=== PATIENT | male | born 1970 | race Caucasian/White ===

== ENCOUNTER 2020-04-07 17:19 | Inpatient (IN) | payer OTHER, SELFPAY ==
[2020-04-07 17:21] VITALS: BP 127/72; PULSE 96; RESP 18; TEMP 38.3; O2SAT 97; BMI 24.0
--- NOTE | 2020-04-07 19:28 | ED.VIS.GEN ---
History of Present Illness Chief Complaint: Dental Informant: Patient Narrative: She states that he has been having some decayed teeth particularly on the right side. He states over the weekend it began to swell. He is been unable to eat because it is painful to open his mouth. He went and saw Dr. Sanchez was sent to the emergency department for admission. Past Medical History - Allergies and Home Meds Allergies/Adverse Reactions: Allergies No Known Allergies Allergy (Verified 04/07/20 17:26) Primary Care Physician: Care Physician,No Primary [Primary Care Provider] - Smoking Status: Never smoker Review of Systems General: Reports: Chills, Fever, Malaise, Weight loss. Denies: Sweats Eyes: Denies: Visual changes - bilaterally, Diplopia ENT: Reports: - - See history of present illness. Denies: Rhinorrhea, Sore throat Cardiovascular: Denies: Chest pain, Palpitations Respiratory: Denies: Dyspnea, Cough, Dyspnea on exertion Gastrointestinal: Denies: Abdominal pain, Nausea, Vomiting, Diarrhea, Melena, Hematochezia Genitourinary: Denies: Dysuria, Hematuria, Frequency Musculoskeletal: Denies: Back pain, Extremity Pain Skin: Denies: Rash, Wounds Neurological: Denies: Headache, Weakness, Numbness Physical Exam Vital Signs/Narrative: Vital Signs Temp Pulse Resp BP Pulse Ox 04/07/20 17:21 101.0 F H 96 18 127/72 H 97 Inital Vital Signs reviewed: Yes General: Well nourished, Well developed, No Acute Distress Head: Normocephalic, Atraumatic Eyes: Perrl, EOMI ENT: Moist mucous membranes, No rhinorrhea, - - Patient has trismus. There is obvious right mandibular swelling with some mild erythema. Patient is handling his secretions normally however. Neck: Supple, Nontender Cardiovascular: Regular rate, Regular rhythm, No murmurs, - - Normal capillary refill of the hands Respiratory: No distress, CTA bilaterally, Chest nontender Abdomen: Soft, Nontender, Nondistended, Normal bowel sounds Back: Nontender, Normal Inspection Extremities: Nontender, No edema Skin: Normal color, No rash Neurological: Alert, Oriented x3, Cranial nerves II-XII grossly intact, Normal Strength, Normal Sensation Psychological: Normal affect, Normal Mood Diagnostic/Tx/Re-eval Clinical Impression(s) from Imaging Studies Facial/Sinus 04/07/20 19:41 IMPRESSION: Multiple dental caries complex abscess measuring 5 x 3.4 cm adjacent to a right posterior mandibular dental caries which is noted lateral and medial to the mandible on the right with involvement of the base of the tongue and the floor of mouth. There is compression and narrowing of the oropharynx Cellulitis adjacent to the mandible and right Mildly enlarged right submandibular and pericarotid lymph nodes likely reactive Electronically Signed: Ayo Rosen, at 21:10 EDT Tel , Service support , Laboratory Last Values WBC 13.4 K/mm3 (4.4-11.0) H 04/07/20 19:45 RBC 4.82 M/mm3 (4.6-6.2) 04/07/20 19:45 Hgb 15.2 g/dL (13.0-16.5) 04/07/20 19:45 Hct 43.3 % (40-54) 04/07/20 19:45 MCV 89.8 fL (80-94) 04/07/20 19:45 MCH 31.5 pg (27.0-32.0) 04/07/20 19:45 MCHC 35.1 g/dL (32-36) 04/07/20 19:45 RDW Std Deviation 37.4 fl (35.1-43.9) 04/07/20 19:45 RDW Coeff of Alyce 11.5 % (11.6-14.6) L 04/07/20 19:45 Plt Count 263 K/mm3 (150-450) 04/07/20 19:45 MPV 9.1 fl (6.2-12.0) 04/07/20 19:45 Immature Gran % (Auto) 0.400 % (0.0-0.9) 04/07/20 19:45 Neut % (Auto) 83.0 % (47-70) H 04/07/20 19:45 Lymph % (Auto) 8.1 % (19-41) L 04/07/20 19:45 [place] % (Auto) 8.3 % (0-10) 04/07/20 19:45 Eos % (Auto) 0.0 % (0-5) 04/07/20 19:45 Baso % (Auto) 0.2 % (0-1) 04/07/20 19:45 Absolute Neuts (auto) 11.2 X10^3/uL (2.0-7.7) H 04/07/20 19:45 Absolute Lymphs (auto) 1.09 X10^3/uL (0.83-4.51) 04/07/20 19:45 Nucleated RBC % 0 % (0-5) 04/07/20 19:45 PT 16.1 SECONDS (11.7-14.9) H 04/07/20 19:45 INR 1.3 04/07/20 19:45 APTT 30.3 Seconds (24.1-36.2) 04/07/20 19:45 Sodium 134 mmol/L (136-145) L 04/07/20 19:45 Potassium 3.7 mmol/L (3.5-5.1) 04/07/20 19:45 Chloride 100 mmol/L (98-107) 04/07/20 19:45 Carbon Dioxide 28.0 mmol/L (21.0-32.0) 04/07/20 19:45 Anion Gap 6 (5-15) 04/07/20 19:45 BUN 19 mg/dL (7-18) H 04/07/20 19:45 Creatinine 1.17 mg/dL (0.70-1.30) 04/07/20 19:45 Estim Creat Clear Calc 79.55 ml/min 04/07/20 19:45 Est GFR (MDRD) Af Amer 84 mL/min (>60) 04/07/20 19:45 Est GFR (MDRD) Non-Af 70 mL/min (>60) 04/07/20 19:45 BUN/Creatinine Ratio 16.2 RATIO (10-20) 04/07/20 19:45 Glucose 102 mg/dL (74-106) 04/07/20 19:45 Lactic Acid 1.2 mmol/L (0.4-1.9) 04/07/20 19:45 Calcium 9.4 mg/dL (8.5-10.1) 04/07/20 19:45 Total Bilirubin 0.60 mg/dL (0.20-1.00) 04/07/20 19:45 AST 13 U/L (15-37) L 04/07/20 19:45 ALT 21 U/L (16-61) 04/07/20 19:45 Alkaline Phosphatase 108 U/L (45-117) 04/07/20 19:45 Troponin I < 0.015 ng/mL (<0.045) 04/07/20 19:45 Total Protein 8.8 g/dL (6.4-8.2) H 04/07/20 19:45 Albumin 3.6 g/dL (3.2-5.0) 04/07/20 19:45 Globulin 5.2 g/dL (2.2-4.2) H 04/07/20 19:45 Albumin/Globulin Ratio 0.7 RATIO (0.9-2.4) L 04/07/20 19:45 - Medical Decision Making Patient received morphine Zofran and IV fluids. He received Unasyn after blood cultures were obtained. CT findings were reviewed and discussed with Dr. Sanchez. Plan is admission. Sepsis re-evaluation was performed ED Disposition - Plan for ED Patient: Disposition: Acute Care Hospital [facility] Diagnosis: Dental abscess, Sepsis Referrals: Care Physician,No Primary [Primary Care Provider] -
--- NOTE | 2020-04-07 19:41 | CT_ITS ---
STUDY: CT FACIAL BONES WITH CONTRAST REASON FOR EXAM: Male, 49 years old. INFECTED TOOTH, DENTAL ABSCESS, UNABLE TO SWALLOW RADIATION DOSAGE (If Supplied By Facility): CTDIvol = ( 29.38 ) mGy, DLP = ( 664.99 ) mGycm TECHNIQUE: The patient was scanned in a multi detector CT scanner. Transaxial imaging was performed following the intravenous administration of IV 100mL Isovue-300. Sagittal and coronal images were reconstructed. Individualized dose optimization techniques were used for this CT. COMPARISON: None. FINDINGS: There is soft tissue edema most significant adjacent to the mandible on the right. There are multiple dental caries including a right posterior mandibular molar. Adjacent to this there is a complex abscess measuring 5 x 3.4 cm which is noted lateral and medial to the mandible with involvement of the base of the tongue and floor of the mouth. There is compression and narrowing of the oropharynx. There are Multiple 1.5 cm and smaller right submandibular and cervical lymph nodes. No bony fractures. The sinuses are well aerated. CT/Sinus/Facial Bone WITH Contras IMPRESSION: Multiple dental caries complex abscess measuring 5 x 3.4 cm adjacent to a right posterior mandibular dental caries which is noted lateral and medial to the mandible on the right with involvement of the base of the tongue and the floor of mouth. There is compression and narrowing of the oropharynx Cellulitis adjacent to the mandible and right Mildly enlarged right submandibular and pericarotid lymph nodes likely reactive Electronically Signed: Ayo Rosen, at 21:10 EDT Tel , Service support ,
[2020-04-07] MEDS: 0.9% Normal Saline 1,000 ML 1000 ML IV (19:58)
[2020-04-07] MEDS: Ondansetron 4 MG/2 ML Vial IV (19:59)
[2020-04-07 20:00] VITALS: BP 126/66; PULSE 89; RESP 16; TEMP 37.1; O2SAT 98
[2020-04-07] MEDS: Morphine 4 MG/ML Syringe IV (20:00)
[2020-04-07 20:06] LABS: Absolute Lymphocyte Count 1.09 X10^3/uL (0.83-4.51); Absolute Neutrophil Count 11.2 X10^3/uL (2.0-7.7); Basophil# 0.03 X10^3/uL; Basophil% 0.2 % (0-1); Hematocrit 43.3 % (40-54); Hemoglobin 15.2 g/dL (13.0-16.5); Lymphocyte # 1.09 X10^3/ul (4.0); Lymphocyte % 8.1 % (19-41); Mean Corp Hgb Conc 35.1 g/dL (32-36); Mean Corpuscular Hgb 31.5 pg (27.0-32.0); Mean Corpuscular Volume 89.8 fL (80-94); Mean Platelet Vol. 9.1 fl (6.2-12.0); Monocyte# 1.11 X10^3/uL; Monocyte% 8.3 % (0-10); NRBC Flagged by Analyzer 0 % (0-5); Neutrophil # 11.15 X10^3/uL (2.7-7.7); Platelet Count 263 K/mm3 (150-450); RBC Distribution Width CV 11.5 % (11.6-14.6); RBC Distribution Width SD 37.4 fl (35.1-43.9); Red Blood Count 4.82 M/mm3 (4.6-6.2); White Blood Count 13.4 K/mm3 (4.4-11.0)
[2020-04-07 20:27] LABS: BUN 19 mg/dL (7-18); Glucose 102 mg/dL (74-106)
[2020-04-07 20:28] LABS: ALB/GLOB Ratio 0.7 RATIO (0.9-2.4); AST(SGOT) 13 U/L (15-37); Alanine Aminotransfer ALT/SGPT 21 U/L (16-61); Albumin, Serum 3.6 g/dL (3.2-5.0); Alkaline Phosphatase 108 U/L (45-117); Anion Gap 6 (5-15); BUN/Creat Ratio 16.2 RATIO (10-20); Calcium,Total 9.4 mg/dL (8.5-10.1); Chloride 100 mmol/L (98-107); Creatinine, Serum 1.17 mg/dL (0.70-1.30); EST Glomerular Filtration Rate 70 mL/min (>60); Est Glom Filt Rate - Afr Amer 84 mL/min (>60); Estimated Creatinine Clearance 79.55 ml/min; Globulin 5.2 g/dL (2.2-4.2); Potassium 3.7 mmol/L (3.5-5.1); Protein, Total 8.8 g/dL (6.4-8.2); Sodium Level 134 mmol/L (136-145)
[2020-04-07 20:39] LABS: Lactic Acid 1.2 mmol/L (0.4-1.9)
[2020-04-07] MEDS: 0.9% Normal Saline 1,000 ML 150 ML IV (20:52)
[2020-04-07 21:16] LABS: International Normalized Ratio 1.3; Partial Thromboplast Time 30.3 Seconds (24.1-36.2); Prothrombin Time (Protime)PT. 16.1 SECONDS (11.7-14.9)
--- NOTE | 2020-04-07 21:26 | HP.PCM_ITS ---
History of Present Illness Date of Admission: 04/07/20 Chief Complaint: swollen, painful right jaw The patient is a 49 year old M with no significant past medical history. He was admitted through the ED on 04/07/2020 after being sent to the ED from his dentist office. Patient will see his dentist because he had noticed that his right jaw had become swollen over the weekend. Patient states he has been dealing with a tooth ache for the past several months and today has gradually gotten worse. The affected tooth is in the back of his right jaw. He noticed that over the weekend, his jaw became swollen and red as well as very painful. Was unable to swallow due to pain and unable to open his mouth fully. He had associated fever and chills but denied any nausea, vomiting or diarrhea. Review of symptoms otherwise negative. He has never had such symptoms before. At time of review in the ED, temperature was 98.7 Fahrenheit with blood pressure of 126/66, pulse rate of 89 and respiratory of 16. He was saturating 98% on room air. Chemistry showed sodium of 134 with creatinine of 1.17. CBC showed WBC of 13.4 and hemoglobin of 15.2. Imaging done of the sinuses showed multiple dental caries with complex abscess measuring 5 x 3.4 cm adjacent to the right posterior mandibular dental caries which is noted lateral and medial to the mandible on the right with involvement of the base of the tongue and the floor of the mouth with compression and narrowing of the oropharynx and cellulitis adjacent to the mandible and right mildly enlarged submandibular and periparotid lymph nodes likely reactive. He has been admitted to be managed for cellulitis with abscess of the right mandible due to dental caries. He was given IV Unasyn in the ED. [] Past Medical History Allergies No Known Allergies Allergy (Verified 04/07/20 17:26) Home Medications: Ambulatory Orders Medication Instructions Recorded NK 04/07/20 Surgical History: no surgical history Psychiatric History: No pertinent psych hx Lives: Spouse/ Significant Other Smoking Status: Never smoker Alcohol: None Drugs: None - *Family History Maternal History Items: No pertinent history Paternal History Items: No pertinent history Review of Systems Constitutional: Reports: Anorexia, Chills, Fever, Malaise. Denies: Weakness, Fatigue Eyes: Denies: Blurred vision HEENT: Reports: Difficulty Swallowing, Sore Throat, - - jaw swelling, jaw pain. Denies: Head Aches, Sinus Congestion, Sinus Drainage Cardiovascular: Denies: Chest Pain, Palpitations Respiratory: Denies: Cough, Shortness of Breath, Shortness of breath at rest, Sputum production Gastrointestinal: Denies: Abdominal Pain, Nausea, Vomiting Genitourinary: Denies: Dysuria Musculoskeletal: Denies: Joint Pain, Joint Tenderness Skin: Denies: Rash, Wounds Neurological: Denies: Numbness, Tingling, Focal weakness Psychiatric: Denies: Anxiety, Depression, Homicidal Ideations, Suicidal Ideations Hematologic/ Lymphatic: Denies: Easy Bruising, Easy Bleeding VTE Information - Inpt Only VTE Present on Admission: No VTE Pharm Prophylaxis ordered?: Yes Patient Problems: Active and Suspected Problems Dental abscess (Acute) Sepsis (Acute) - Physical Exam Vitals/I&O's: Vital Signs Temp Pulse Resp BP Pulse Ox 98.7 F 89 16 126/66 H 98 04/07/20 20:00 04/07/20 20:00 04/07/20 20:00 04/07/20 20:00 04/07/20 20:00 Oxygen Delivery Method Room Air Weight: 171 lb 15.369 oz Body Mass Index (BMI) 24.0 Intake and Output for Last 24 Hours 04/05/20 04/06/20 04/07/20 23:59 23:59 23:59 Intake Total 1000 / 1000 Balance 1000 / 1000 General: Alert, Oriented x3, Cooperative, No apparent distress HEENT: Atraumatic, PERRLA, EOMI, Normocephalic Oral: Dry Mucosa, - - right jaw swollen, erhtyematous, tender and fluctuant. Unable to open mouth fully,has trismus and torticollis to the right. Neck: Supple, No JVD, Negative Carotid Bruits Lungs: Clear to auscultation, Normal air movement, No rhonchi, No wheeze, No rales Cardiovascular: Regular rate, Regular Rhythm, Normal S1, Normal S2, No murmurs Abdomen: Bowel Sounds Present, Soft, Non Tender, Non-Distended, No Hepato- splenomegaly Extremities: No clubbing, No cyanosis, No edema, Capillary Refill Less than 3 Seconds Skin: No rashes, No breakdown Musculoskeletal: No Tenderness to Palpation of Joints or Extremities Lymphatic: No Cervical, Supraclavicular, or Inguinal Adenopathy Neurological: Cranial nerves II-XII grossly intact, Neuro grossly intact, Motor Exam 5/5 strength throughout Psych/Mental Status: Normal Affect, Appropriate, Alert and oriented to time, place, person, mood and affect Laboratory Results 04/07/20 19:45: WBC 13.4 H, RBC 4.82, Hgb 15.2, Hct 43.3, MCV 89.8, MCH 31.5, MCHC 35.1, RDW Std Deviation 37.4, RDW Coeff of Alyce 11.5 L, Plt Count 263, MPV 9.1, Immature Gran % (Auto) 0.400, Neut % (Auto) 83.0 H, Lymph % (Auto) 8.1 L, [place] % (Auto) 8.3, Eos % (Auto) 0.0, Baso % (Auto) 0.2, Absolute Neuts (auto) 11.2 H, Absolute Lymphs (auto) 1.09, Nucleated RBC % 0 04/07/20 19:45: PT 16.1 H, INR 1.3, APTT 30.3 04/07/20 19:45: Sodium 134 L, Potassium 3.7, Chloride 100, Carbon Dioxide 28.0, Anion Gap 6, BUN 19 H, Creatinine 1.17, Estim Creat Clear Calc 79.55, Est GFR (MDRD) Af Amer 84, Est GFR (MDRD) Non-Af 70, BUN/Creatinine Ratio 16.2, Glucose 102, Calcium 9.4, Total Bilirubin 0.60, AST 13 L, ALT 21, Alkaline Phosphatase 108, Troponin I < 0.015, Total Protein 8.8 H, Albumin 3.6, Globulin 5.2 H, Albumin/Globulin Ratio 0.7 L 04/07/20 19:45: Lactic Acid 1.2 Diagnostic Data Facial/Sinus 04/07/20 19:41 IMPRESSION: Multiple dental caries complex abscess measuring 5 x 3.4 cm adjacent to a right posterior mandibular dental caries which is noted lateral and medial to the mandible on the right with involvement of the base of the tongue and the floor of mouth. There is compression and narrowing of the oropharynx Cellulitis adjacent to the mandible and right Mildly enlarged right submandibular and pericarotid lymph nodes likely reactive Electronically Signed: Ayo Rosen, at 21:10 EDT Tel , Service support , Current Medications Sodium Chloride () 1,000 mls @ 150 mls/hr IV .[id number] [facility] Last Admin: 04/07/20 20:52 Dose: 150 mls/hr Documented by: Iopamidol (Contrast Allergy Check) 0 ml IV X1 [facility] Assessment/Plan All Active Problems Dental abscess (Acute) Sepsis (Acute) 49-year-old male admitted with a complaint of jaw pain and swelling. 1. Right mandiubular abscess and cellulitis * admit to med surg * wbc is 13.4 * CT of the face and sinuses: Multiple dental abscesses and complex abscess measuring 5 cm x 3.4 cm adjacent to posterior mandibular dental caries with involvement of the base of the tongue and floor of the mouth with compression and narrowing of the oropharynx as well as cellulitis and enlarged lymph nodes. * Keep n.p.o. Hydrate with IV fluids. IV morphine as needed for pain * Continue with IV Unasyn * Consult maxillofacial surgeon-Dr. Sanchez discussed case with the ED and he plans to take patient for surgery tomorrow morning * DVT prophylaxis: Lovenox CODE STATUS: Full code * Patient counseled extensively about different types of CODE STATUS including full code, DNR CCA and DNR CCA. Patient elects to be full code. Total [id number] time 16 minutes. * Inpatient E&M: 12689 Init Hosp L3 Procedures: 67248 Advncd Care Plan 30 Min
[2020-04-07 21:49] VITALS: BP 127/74; PULSE 86; RESP 16; TEMP 37.1; O2SAT 96
[2020-04-07 22:41] VITALS: BMI 27.3
[2020-04-07 22:47] VITALS: BMI 27.3
[2020-04-07 22:57] VITALS: BP 139/70; PULSE 76; RESP 16; TEMP 37.9; O2SAT 100
[2020-04-08] VITALS (13 sets, daily range): BP systolic 95–121; BP diastolic 49–68; PULSE 71–93; RESP 16–18; TEMP 36.7–37.9; O2SAT 93–100; BMI 27.3
[2020-04-08 01:59] LABS: Probe Check PASS; Specimen Processing Control PASS
[2020-04-08] MEDS: Morphine 4 MG/ML Syringe IV (02:43)
[2020-04-08] MEDS: 0.9% Normal Saline 1,000 ML 125 ML IV ×3 (05:50→16:49)
[2020-04-08 06:22] LABS: Absolute Lymphocyte Count 1.03 X10^3/uL (0.83-4.51); Absolute Neutrophil Count 10.5 X10^3/uL (2.0-7.7); Basophil# 0.02 X10^3/uL; Basophil% 0.2 % (0-1); Eosinophil# 0.04 X10^3/uL; Eosinophils% 0.3 % (0-5); Hematocrit 36.2 % (40-54); Hemoglobin 12.1 g/dL (13.0-16.5); Lymphocyte # 1.03 X10^3/ul (4.0); Mean Corp Hgb Conc 33.4 g/dL (32-36); Mean Corpuscular Hgb 30.4 pg (27.0-32.0); Mean Platelet Vol. 8.9 fl (6.2-12.0); Monocyte# 1.28 X10^3/uL; Monocyte% 9.9 % (0-10); NRBC Flagged by Analyzer 0 % (0-5); Neutrophil # 10.48 X10^3/uL (2.7-7.7); Neutrophil % 81.1 % (47-70); Platelet Count 207 K/mm3 (150-450); RBC Distribution Width CV 11.8 % (11.6-14.6); RBC Distribution Width SD 38.5 fl (35.1-43.9); Red Blood Count 3.98 M/mm3 (4.6-6.2); White Blood Count 12.9 K/mm3 (4.4-11.0)
[2020-04-08 06:44] LABS: Anion Gap 4 (5-15); BUN 16 mg/dL (7-18); BUN/Creat Ratio 17.3 RATIO (10-20); Calcium,Total 8.3 mg/dL (8.5-10.1); Chloride 104 mmol/L (98-107); Creatinine, Serum 0.93 mg/dL (0.70-1.30); EST Glomerular Filtration Rate 91 mL/min (>60); Est Glom Filt Rate - Afr Amer 110 mL/min (>60); Estimated Creatinine Clearance 90.91 ml/min; Glucose 101 mg/dL (74-106); Potassium 3.6 mmol/L (3.5-5.1); Sodium Level 133 mmol/L (136-145)
--- NOTE | 2020-04-08 07:41 | CON.PCM_ITS ---
Reason for Consult Date of Consultation: 04/08/20 Reason for Consultation: Facial and neck abscess History of Present Illness: The patient is a 49 year old Male admitted for severe facial abscess from odontogenic sources Past Medical History Allergies No Known Allergies Allergy (Verified 04/07/20 17:26) Home Medications: Ambulatory Orders Medication Instructions Recorded NK 04/07/20 Surgical History: no surgical history Psychiatric History: No pertinent psych hx Lives: Spouse/ Significant Other Smoking Status: Never smoker Alcohol: None Drugs: None - *Family History Maternal History Items: No pertinent history Paternal History Items: No pertinent history Patient Problems: Active and Suspected Problems Dental abscess (Acute) Sepsis (Acute) - Physical Exam Vitals/I&O's: Vital Signs Temp Pulse Resp BP Pulse Ox 98.3 F 76 16 112/64 97 04/08/20 02:40 04/08/20 02:40 04/08/20 02:40 04/08/20 02:40 04/08/20 02:40 Oxygen Delivery Method Room Air Weight: 81.5 kg Body Mass Index (BMI) 27.3 Intake and Output for Last 24 Hours 04/06/20 04/07/20 04/08/20 23:59 23:59 23:59 Intake Total 1542 / 1542 727.83 / 727.83 Output Total 350 / 350 Balance 1542 / 1192 377.83 / 377.83 General: Alert, Oriented x3, Cooperative HEENT: Atraumatic, PERRLA, EOMI, Normocephalic Oral: Moist Mucosa Neck: Supple - More soft tissue swelling right submandibular region, No JVD Laboratory Results 04/07/20 19:45: WBC 13.4 H, RBC 4.82, Hgb 15.2, Hct 43.3, MCV 89.8, MCH 31.5, MCHC 35.1, RDW Std Deviation 37.4, RDW Coeff of Alyce 11.5 L, Plt Count 263, MPV 9.1, Immature Gran % (Auto) 0.400, Neut % (Auto) 83.0 H, Lymph % (Auto) 8.1 L, [place] % (Auto) 8.3, Eos % (Auto) 0.0, Baso % (Auto) 0.2, Absolute Neuts (auto) 11.2 H, Absolute Lymphs (auto) 1.09, Nucleated RBC % 0 04/07/20 19:45: PT 16.1 H, INR 1.3, APTT 30.3 04/07/20 19:45: Sodium 134 L, Potassium 3.7, Chloride 100, Carbon Dioxide 28.0, Anion Gap 6, BUN 19 H, Creatinine 1.17, Estim Creat Clear Calc 79.55, Est GFR (MDRD) Af Amer 84, Est GFR (MDRD) Non-Af 70, BUN/Creatinine Ratio 16.2, Glucose 102, Calcium 9.4, Total Bilirubin 0.60, AST 13 L, ALT 21, Alkaline Phosphatase 108, Troponin I < 0.015, Total Protein 8.8 H, Albumin 3.6, Globulin 5.2 H, Albumin/Globulin Ratio 0.7 L 04/07/20 19:45: Lactic Acid 1.2 04/08/20 01:00: COVID-19 ([facility]) Negative 04/08/20 06:05: WBC 12.9 H, RBC 3.98 L, Hgb 12.1 L, Hct 36.2 L, MCV 91.0, MCH 30.4, MCHC 33.4, RDW Std Deviation 38.5, RDW Coeff of Alyce 11.8, Plt Count 207, MPV 8.9, Immature Gran % (Auto) 0.500, Neut % (Auto) 81.1 H, Lymph % (Auto) 8.0 L, [place] % (Auto) 9.9, Eos % (Auto) 0.3, Baso % (Auto) 0.2, Absolute Neuts (auto) 10.5 H, Absolute Lymphs (auto) 1.03, Nucleated RBC % 0 04/08/20 06:05: Sodium 133 L, Potassium 3.6, Chloride 104, Carbon Dioxide 25.0, Anion Gap 4 L, BUN 16, Creatinine 0.93, Estim Creat Clear Calc 90.91, Est GFR (MDRD) Af Amer 110, Est GFR (MDRD) Non-Af 91, BUN/Creatinine Ratio 17.3, Glucose 101, Calcium 8.3 L Current Medications Dextrose (D50w Syringe) 0 gm IV X1 PRN; Protocol PRN Reason: Hypoglycemia Glucagon () 1 mg IM .X1 PRN PRN Reason: Hypoglycemia Sodium Chloride () 1,000 mls @ 125 mls/hr IV .Q8H [facility] Stop: 07/28/20 22:55 Last Infusion: 04/08/20 06:12 Dose: 0 mls/hr Documented by: Ampicillin Sodium/Sulbactam (Sodium 3 gm/ Sodium Chloride) 112 mls @ 150 mls/hr IV Q6 [facility] Last Admin: 04/08/20 06:09 Dose: 150 mls/hr Documented by: Sodium Chloride () 250 mls @ 15 mls/hr IV .[id number] PRN PRN Reason: Saline Flush Morphine Sulfate () 4 mg IV Q3H PRN PRN PRN Reason: Pain Score 6-10/10 Last Admin: 04/08/20 02:43 Dose: 4 mg Documented by: Ondansetron HCl (Zofran) 4 mg IV Q8H PRN PRN PRN Reason: NAUSEA/VOMITING Sodium Chloride () 10 - 40 ml IV UD PRN PRN Reason: SALINE FLUSH Assessment/Plan All Active Problems Dental abscess (Acute) Sepsis (Acute) Right submandibular space, right sublingual, inside sales recruiter space involvement. Plan on continued NPO today and later today OR for I and D of Involved spaces.
--- NOTE | 2020-04-08 07:52 | NURSING ---
SPOKE WITH DR RODRIGUEZ ON TELEPHONE. PT REQUESTING SOME CLEARS LIQUIDS. SAYS NOT @ THIS TIME BECAUSE WE ARE UNSURE OF SURGERY TIME TODAY. DID, HOWEVER, ORDER COVID TEST.
--- NOTE | 2020-04-08 10:15 | CASEMGMT ---
RN MAT Face to Face with patient for initial transition planning/care coordination assessment. RN CM introduced self and role at [facility]. Patient lying in bed, alert and oriented. Patient willing to participate in assessment and is able to answer all questions appropriately. Care providers, pharmacy, and demographics verified. Patient wishes to discharge home, denies need for home health at this time. Patient states he has no further needs or concerns at this time. CM to follow for discharge planning needs that may arise. PCP: [facility] Specialists: none Preferred Pharmacy: [facility] Insurance: [employer] Prescription Benefit: none Living Will/HPOA: none LNOK: Living Arrangements: Patient lives with in 2 story home. Patient is independent and able to ambulate stairs. Transportation: self/driving service DME/HHC: Patient denies DME or HHC. Disposition Plan: Patient to discharge home with family support and follow-up plans in place. Светлана SANCHEZ, RN, CM
--- NOTE | 2020-04-08 13:05 | PN_ITS ---
Patient Problems: Active and Suspected Problems Dental abscess (Acute) Sepsis (Acute) Reason for Visit: Follow-up for right-sided deep cervical fascia fascial abscess in multiple planes Objective: Patient admitted with right-sided facial swelling, trismus, dysphagia since Tuesday. Gradually increasing. Patient also has fever, T-max 101 Fahrenheit on admission Blood pressure 112/60 4 in the morning. No hypoxia or tachypnea Patient has history of dental caries Physical exam General: Alert, Oriented x3, Cooperative HEENT: Atraumatic, PERRLA, EOMI, Normocephalic Oral: Trismus present. On limited oral exam, dental caries of premolar and molar with purulent material seen in the molar area. Tenderness present on buccal area. Diffuse swelling, erythema and tenderness of right side of face from temporal region to upper half of neck vertically and horizontally from mastoid process to mid-face. Due to pain and tenderness and swelling, patient did not allow for cervical lymph node exam Neck: Supple, No JVD, Negative Carotid Bruits Lungs: Air entry diminished in bilateral lung bases. No crepitation/rhonchi Cardiovascular: Regular rate, Regular Rhythm, Normal S1, Normal S2, No murmurs Abdomen: Bowel Sounds Present, Soft, Non Tender, Non-Distended : No renal angle tenderness. No suprapubic tenderness. Extremities: No edema, Capillary Refill Less than 3 Seconds Skin: No rashes, No breakdown Musculoskeletal: No Tenderness to Palpation of Joints or Extremities Neurological: Cranial nerves II-XII grossly intact, Deep Tendon Reflexes 2+/4 and Symmetrical, Neuro grossly intact Psych/Mental Status: Normal Affect, Appropriate. Vitals/I&O's: Vital Signs Temp Pulse Resp BP Pulse Ox 98.6 F 83 18 95/54 L 98 04/08/20 11:43 04/08/20 11:43 04/08/20 11:43 04/08/20 11:43 04/08/20 11:43 Oxygen Delivery Method Room Air Weight: 179 lb 10.828 oz Body Mass Index (BMI) 27.3 Intake and Output for Last 24 Hours 04/06/20 04/07/20 04/08/20 23:59 23:59 23:59 Intake Total 1542 / 1542 1551.83 / 1551.83 Output Total 350 / 350 Balance 1542 / 1192 1201.83 / 1201.83 Laboratory Results 04/07/20 19:45: WBC 13.4 H, RBC 4.82, Hgb 15.2, Hct 43.3, MCV 89.8, MCH 31.5, MCHC 35.1, RDW Std Deviation 37.4, RDW Coeff of Alyce 11.5 L, Plt Count 263, MPV 9.1, Immature Gran % (Auto) 0.400, Neut % (Auto) 83.0 H, Lymph % (Auto) 8.1 L, Irion % (Auto) 8.3, Eos % (Auto) 0.0, Baso % (Auto) 0.2, Absolute Neuts (auto) 11.2 H, Absolute Lymphs (auto) 1.09, Nucleated RBC % 0 04/07/20 19:45: PT 16.1 H, INR 1.3, APTT 30.3 04/07/20 19:45: Sodium 134 L, Potassium 3.7, Chloride 100, Carbon Dioxide 28.0, Anion Gap 6, BUN 19 H, Creatinine 1.17, Estim Creat Clear Calc 79.55, Est GFR (MDRD) Af Amer 84, Est GFR (MDRD) Non-Af 70, BUN/Creatinine Ratio 16.2, Glucose 102, Calcium 9.4, Total Bilirubin 0.60, AST 13 L, ALT 21, Alkaline Phosphatase 108, Troponin I < 0.015, Total Protein 8.8 H, Albumin 3.6, Globulin 5.2 H, Albumin/Globulin Ratio 0.7 L 04/07/20 19:45: Lactic Acid 1.2 04/08/20 01:00: COVID-19 ([facility]) Negative 04/08/20 06:05: WBC 12.9 H, RBC 3.98 L, Hgb 12.1 L, Hct 36.2 L, MCV 91.0, MCH 30.4, MCHC 33.4, RDW Std Deviation 38.5, RDW Coeff of Alyce 11.8, Plt Count 207, MPV 8.9, Immature Gran % (Auto) 0.500, Neut % (Auto) 81.1 H, Lymph % (Auto) 8.0 L, Irion % (Auto) 9.9, Eos % (Auto) 0.3, Baso % (Auto) 0.2, Absolute Neuts (auto) 10.5 H, Absolute Lymphs (auto) 1.03, Nucleated RBC % 0 04/08/20 06:05: Sodium 133 L, Potassium 3.6, Chloride 104, Carbon Dioxide 25.0, Anion Gap 4 L, BUN 16, Creatinine 0.93, Estim Creat Clear Calc 90.91, Est GFR (MDRD) Af Amer 110, Est GFR (MDRD) Non-Af 91, BUN/Creatinine Ratio 17.3, Glucose 101, Calcium 8.3 L Current Medications Dextrose (D50w Syringe) 0 gm IV X1 PRN; Protocol PRN Reason: Hypoglycemia Glucagon () 1 mg IM .X1 PRN PRN Reason: Hypoglycemia Sodium Chloride () 1,000 mls @ 125 mls/hr IV .Q8H CECILE Stop: 04/08/20 22:55 Last Infusion: 04/08/20 12:20 Dose: 125 mls/hr Documented by: Ampicillin Sodium/Sulbactam (Sodium 3 gm/ Sodium Chloride) 112 mls @ 150 mls/hr IV Q6 CECILE Last Infusion: 04/08/20 12:20 Dose: Infused Documented by: Sodium Chloride () 250 mls @ 15 mls/hr IV .[id number] PRN PRN Reason: Saline Flush Morphine Sulfate () 4 mg IV Q3H PRN PRN PRN Reason: Pain Score 6-10/10 Last Admin: 04/08/20 02:43 Dose: 4 mg Documented by: Ondansetron HCl (Zofran) 4 mg IV Q8H PRN PRN PRN Reason: NAUSEA/VOMITING Sodium Chloride () 10 - 40 ml IV UD PRN PRN Reason: SALINE FLUSH STROKE Vital Signs/Narrative: Vital Signs Temp Pulse Resp BP Pulse Ox 04/08/20 11:43 98.6 F 83 18 95/54 L 98 04/08/20 11:37 98.6 F 83 18 95/54 L 98 Medical Necessity - Tobacco Use Smoking Status: Never smoker Assessment/Plan All Active Problems Dental abscess (Acute) Sepsis (Acute) This is a 49-year-old male admitted with a complaint of right-sided face swelling, pain and tenderness started with submandibular region and CT finding suggestive of abscess. 1. Right facial cellulitis with deep, complex abscesses in multiple fascial planes in the right submandibular space, right sublingual space and right display screen fabricator space, odontogenic origin: Patient is admitted on [facility]. Leukocytosis with left shift. Patient has fever. CT shows complex abscess measuring 5 x 3.4 cm, adjacent to right posterior mandible dental caries with involvement of the base of the tongue, floor of the mouth with compression and narrowing on the oropharynx. There is cellulitis noted to the mandible. Mildly enlarged right submandibular and pericardial lymph nodes Patient is going for surgery today. IV fluid and pain control. On IV Unasyn. Oral maxillofacial surgeon Dr. Sanchez's saw the patient and consult reviewed. 2. Dental caries of premolar and molar: Patient denies history of smoking cigarettes, chewing tobacco. Occasionally mild lingering cough. DVT prophylaxis: Lovenox CODE STATUS: Full code Clinical Impression(s) from Imaging Studies Facial/Sinus 04/07/20 19:41 IMPRESSION: Multiple dental caries complex abscess measuring 5 x 3.4 cm adjacent to a right posterior mandibular dental caries which is noted lateral and medial to the mandible on the right with involvement of the base of the tongue and the floor of mouth. There is compression and narrowing of the oropharynx Cellulitis adjacent to the mandible and right Mildly enlarged right submandibular and pericarotid lymph nodes likely reactive Inpatient E&M: 61622 Subs Hosp L2
--- NOTE | 2020-04-08 14:41 | NURSING ---
PT TO OR VIA BED
--- NOTE | 2020-04-08 16:47 | OP.PCM_ITS ---
Report of Operation Date of Procedure: 04/08/20 Pre-Operative Diagnosis: Right Submandibular, sublingual,bin tripper operator and lateral pharyngeal space abcess Post-Operative Diagnosis: Same. Odontogenic cause is infected tooth 32 Surgery/Procedure Performed:: I and D of Submandibular, sublingual , masticato, lateral pharyngeal spaces and extraction tooth 32 Type of Anesthesia:: General/Regional Special Medications: none Specimen's removed: tooth removed not submitted Drains: yes 2 located on medial and lateral aspect of posterior mandible Estimated Blood Loss (mL): minimal Description of Procedure: Patient placed on OR table supine position with anesthesia monitors placed. IV GA administered and patient orally intubated with aid of glidescope.. After sterile draping local anesthesia administered by right inferior alveolar nerve block. Full thickness flap elevated and tooth 32 was extracted. Buccal and lingual incisions made and dissection inferiorly both medially and laterally instantly returned purulent exudate which was submitted for laboratory analysis. At this time we went to the right submandibular region where an incision was made and dissection superiorly up to the medial and lateral aspects of the mandible was completed. Then we went posteriorly into the right bin tripper operator spaces. Nina drains were placed and sutured to the skin. The oral cavity was suctioned free of debri and the incision sites were irrigated. The patient was awakened and extubated after breathing around the tube was verified. He was taken to post anesthesia recovery in stable condition. All sponge and needle counts were correct. - Complications No complications noted.
[2020-04-09] VITALS (7 sets, daily range): BP systolic 100–114; BP diastolic 51–70; PULSE 53–68; RESP 16–18; TEMP 36.2–36.7; O2SAT 97–100
--- NOTE | 2020-04-09 15:01 | PCM.PN.HOSP ---
Patient Problems: Active and Suspected Problems Dental abscess (Acute) Sepsis (Acute) Reason for Visit: Right-sided facial and deep tissue cervical fascia infection oral and deep tissue spaces Objective: Seen and examined. Right-sided facial swelling is much better. There is decreased erythema and tenderness of left-sided facial swelling. Patient is able to open mouth more Physical exam General: Alert, Oriented x3, Cooperative HEENT: Atraumatic, PERRLA, EOMI, Normocephalic Oral: Trismus is decreased. on peroral exam, dental caries of premolar and molar. Proctor drain left. Mild tenderness present. Swelling, erythema and tenderness of right side of face has decreased. 8 is more restricted to masseter area, left submandibular region. Left sided cervical and submandibular lymph node not enlarged. Neck: Supple, No JVD, Negative Carotid Bruits Lungs: Air entry diminished in bilateral lung bases. No crepitation/rhonchi Cardiovascular: Regular rate, Regular Rhythm, Normal S1, Normal S2, No murmurs Abdomen: Bowel Sounds Present, Soft, Non Tender, Non-Distended : No renal angle tenderness. No suprapubic tenderness. Extremities: No edema, Capillary Refill Less than 3 Seconds Skin: No rashes, No breakdown Musculoskeletal: No Tenderness to Palpation of Joints or Extremities Neurological: Cranial nerves II-XII grossly intact, Deep Tendon Reflexes 2+/4 and Symmetrical, Neuro grossly intact Psych/Mental Status: Normal Affect, Appropriate. Vitals/I&O's: Vital Signs Temp Pulse Resp BP Pulse Ox 98.1 F 60 16 101/63 99 04/09/20 13:47 04/09/20 13:47 04/09/20 13:47 04/09/20 13:47 04/09/20 13:47 Oxygen Delivery Method Room Air Weight: 179 lb 10.828 oz Body Mass Index (BMI) 27.3 Intake and Output for Last 24 Hours 04/07/20 04/08/20 04/09/20 23:59 23:59 23:59 Intake Total 1542 / 1542 3943.83 / 3943.83 1437.50 / 1437.50 Output Total 350 / 350 1750 / 1750 Balance 1542 / 1192 3593.83 / 3593.83 -312.50 / -312.50 Microbiology Past 72 Hours 04/08/20 16:21 Other - Mouth Gram Stain - Final 04/08/20 16:21 Other - Mouth Wound Culture - Preliminary Alpha hemolytic organism Current Medications Dextrose (D50w Syringe) 0 gm IV X1 PRN; Protocol PRN Reason: Hypoglycemia Glucagon () 1 mg IM .X1 PRN PRN Reason: Hypoglycemia Ampicillin Sodium/Sulbactam (Sodium 3 gm/ Sodium Chloride) 112 mls @ 150 mls/hr IV Q6 CECILE Last Infusion: 04/09/20 12:03 Dose: Infused Documented by: Sodium Chloride () 250 mls @ 15 mls/hr IV .[id number] PRN PRN Reason: Saline Flush Last Infusion: 04/09/20 12:03 Dose: 15 mls/hr Documented by: Morphine Sulfate () 4 mg IV Q3H PRN PRN PRN Reason: Pain Score 6-10/10 Last Admin: 04/08/20 02:43 Dose: 4 mg Documented by: Ondansetron HCl (Zofran) 4 mg IV Q8H PRN PRN PRN Reason: NAUSEA/VOMITING Sodium Chloride () 10 - 40 ml IV UD PRN PRN Reason: SALINE FLUSH STROKE Vital Signs/Narrative: Vital Signs Temp Pulse Resp BP Pulse Ox 04/09/20 13:47 98.1 F 60 16 101/63 99 Medical Necessity - Tobacco Use Smoking Status: Never smoker Assessment/Plan All Active Problems Dental abscess (Acute) Sepsis (Acute) This is a 49-year-old male admitted with a complaint of right-sided face swelling, pain and tenderness started with submandibular region and CT finding suggestive of abscess. 1. Right facial cellulitis with deep, complex abscesses in multiple fascial planes in the right submandibular space, right sublingual space and right audiovisual equipment operator space, odontogenic origin: Patient is admitted on [facility] floor. Leukocytosis with left shift. Patient has fever. CT shows complex abscess measuring 5 x 3.4 cm, adjacent to right posterior mandible dental caries with involvement of the base of the tongue, floor of the mouth with compression and narrowing on the oropharynx. There is cellulitis noted to the mandible. Mildly enlarged right submandibular and pericardial lymph nodes 04/09: The patient had incision and drainage of submandibular, sublingual, audiovisual equipment operator and retropharyngeal space abscesses. Tooth 32 was also extracted. Left facial swelling has much improved about 75% along with decreased tenderness. There is Proctor drain left in the pharyngeal region. Wound culture is growing alphahemolytic organism. Clinically patient got much better with IV Unasyn and will continue it. On clear liquid diet. IV fluid and pain control. 2. Dental caries of premolar and molar: Patient denies history of smoking cigarettes, chewing tobacco. Occasionally mild lingering cough. DVT prophylaxis: Lovenox CODE STATUS: Full code Clinical Impression(s) from Imaging Studies Facial/Sinus 04/07/20 19:41 IMPRESSION: Multiple dental caries complex abscess measuring 5 x 3.4 cm adjacent to a right posterior mandibular dental caries which is noted lateral and medial to the mandible on the right with involvement of the base of the tongue and the floor of mouth. There is compression and narrowing of the oropharynx Cellulitis adjacent to the mandible and right Mildly enlarged right submandibular and pericarotid lymph nodes likely reactive
--- NOTE | 2020-04-09 15:20 | NURSING ---
Dr. Sanchez called in- states that he will be in shortly
[2020-04-09] MEDS: 0.9% Saline Lock 10 ML Syringe IV (15:27)
[2020-04-09] MEDS: Morphine 4 MG/ML Syringe IV (15:27)
--- NOTE | 2020-04-09 16:25 | PCM.PROGNOTE ---
Patient Problems: Active and Suspected Problems Dental abscess (Acute) Sepsis (Acute) - Physical Exam Vitals/I&O's: Vital Signs Temp Pulse Resp BP Pulse Ox 98.1 F 60 16 101/63 99 04/09/20 13:47 04/09/20 13:47 04/09/20 13:47 04/09/20 13:47 04/09/20 13:47 Oxygen Delivery Method Room Air Weight: 81.5 kg Body Mass Index (BMI) 27.3 Intake and Output for Last 24 Hours 04/07/20 04/08/20 04/09/20 23:59 23:59 23:59 Intake Total 1542 / 1542 3943.83 / 3943.83 1437.50 / 1437.50 Output Total 350 / 350 1750 / 1750 Balance 1542 / 1192 3593.83 / 3593.83 -312.50 / -312.50 Microbiology Past 72 Hours 04/08/20 16:21 Other - Mouth Gram Stain - Final 04/08/20 16:21 Other - Mouth Wound Culture - Preliminary Alpha hemolytic organism Current Medications Dextrose (D50w Syringe) 0 gm IV X1 PRN; Protocol PRN Reason: Hypoglycemia Glucagon () 1 mg IM .X1 PRN PRN Reason: Hypoglycemia Ampicillin Sodium/Sulbactam (Sodium 3 gm/ Sodium Chloride) 112 mls @ 150 mls/hr IV Q6 CECILE Last Infusion: 04/09/20 12:03 Dose: Infused Documented by: Sodium Chloride () 250 mls @ 15 mls/hr IV .[id number] PRN PRN Reason: Saline Flush Last Infusion: 04/09/20 12:03 Dose: 15 mls/hr Documented by: Potassium Chloride () 10 meq in 100 mls @ 100 mls/hr IV BOLUS Q1H CECILE Stop: 04/09/20 17:59 Morphine Sulfate () 4 mg IV Q3H PRN PRN PRN Reason: Pain Score 6-10/10 Last Admin: 04/09/20 15:27 Dose: 4 mg Documented by: Ondansetron HCl (Zofran) 4 mg IV Q8H PRN PRN PRN Reason: NAUSEA/VOMITING Sodium Chloride () 10 - 40 ml IV UD PRN PRN Reason: SALINE FLUSH Last Admin: 04/09/20 15:27 Dose: 10 ml Documented by: Medical Necessity - Tobacco Use Smoking Status: Never smoker Assessment/Plan All Active Problems Dental abscess (Acute) Sepsis (Acute) Patient reports feeling better. Trismus is lessened and he states he is swallowing well. The kishore drains with minimal neck drainage. Intra-orally minimal purulent discharge at this time. He has been afebrile today. So the patient can take orals better I have remove the drains bedside. At this point if he continues to do well probable discharge to home tomorrow with f/u in one week my office.
[2020-04-09] MEDS: Potassium Chloride 10mEq/100mL 10 MEQ/100 ML IV.SOLN. 100 MEQ IV BOLUS ×2 (16:54→17:54)
--- NOTE | 2020-04-09 16:56 | NURSING ---
dr. tineo in at this time and removed kishore drains- this rn just missed seeing him. Pt states he wants diet advanced and dr. engle said that would be ok- but order not entered. dr. tineo paged at this time.
[2020-04-10] MEDS: 0.9% Saline Lock 10 ML Syringe IV (03:46)
[2020-04-10 03:57] VITALS: BP 118/72; PULSE 61; RESP 18; TEMP 36.4; O2SAT 99
[2020-04-10 06:51] LABS: Absolute Lymphocyte Count 1.07 X10^3/uL (0.83-4.51); Absolute Neutrophil Count 9.4 X10^3/uL (2.0-7.7); Basophil# 0.01 X10^3/uL; Basophil% 0.1 % (0-1); Hematocrit 37.6 % (40-54); Hemoglobin 12.3 g/dL (13.0-16.5); Lymphocyte # 1.07 X10^3/ul (4.0); Lymphocyte % 9.5 % (19-41); Mean Corp Hgb Conc 32.7 g/dL (32-36); Mean Corpuscular Hgb 30.3 pg (27.0-32.0); Mean Corpuscular Volume 92.6 fL (80-94); Monocyte# 0.68 X10^3/uL; NRBC Flagged by Analyzer 0 % (0-5); Neutrophil # 9.43 X10^3/uL (2.7-7.7); Neutrophil % 83.6 % (47-70); Platelet Count 260 K/mm3 (150-450); RBC Distribution Width CV 11.8 % (11.6-14.6); RBC Distribution Width SD 39.8 fl (35.1-43.9); Red Blood Count 4.06 M/mm3 (4.6-6.2); White Blood Count 11.3 K/mm3 (4.4-11.0)
[2020-04-10 07:07] LABS: Anion Gap 3 (5-15); BUN 16 mg/dL (7-18); BUN/Creat Ratio 18.8 RATIO (10-20); Calcium,Total 8.5 mg/dL (8.5-10.1); Chloride 105 mmol/L (98-107); Creatinine, Serum 0.85 mg/dL (0.70-1.30); EST Glomerular Filtration Rate 100 mL/min (>60); Est Glom Filt Rate - Afr Amer 122 mL/min (>60); Estimated Creatinine Clearance 99.47 ml/min; Glucose 120 mg/dL (74-106); Potassium 4.1 mmol/L (3.5-5.1); Sodium Level 138 mmol/L (136-145)
--- NOTE | 2020-04-10 07:56 | DCINST_ITS ---
- Discharge Diagnoses Current Active Problems: Current Active and Chronic Problems Dental abscess (Acute) Sepsis (Acute) You will use the following diet at home:: Regular - for 2 weeks until sees PCP, Other - soft texture diet for 5 days Discharge Activity: May Not Drive - for 2 weeks until sees PCP Weight Bearing Status: Weight bearing as tolerated Call your doctor if you observe: Fever of 101 or Higher, Numbness or Tingling, Inability to urinate, Inability to have a bowel movement, Shortness of breath, Dizziness, Fainting spells, Swelling in the ankles, Chest pain, Prolonged hiccoughing, Increased palpitations (irregular heartbeat), Calf discomfort, Uncontrolled pain Allergies/Adverse Reactions: Allergies No Known Allergies Allergy (Verified 04/07/20 17:26) Medications to take at Discharge Amox/Clavulanate Tablet [Augmentin Tablet] 875 mg PO Q12H #14 tab 04/10/20 Chlorhexidine Gluconate 480 ml MM BID #1 mouthwash 04/10/20 The following prescriptions were given: Amox/Clavulanate Tablet [Augmentin Tablet] 875 mg PO Q12H #14 tab Transmission Status: Pending to [facility] Chlorhexidine Gluconate 480 ml MM BID #1 mouthwash Transmission Status: Pending to [facility] Primary Care Physician: Care Physician,No Primary [Primary Care Provider] - Please follow up with your Primary Care Physician in: [place] 2 Week Test Results: Test results from this visit will be discussed in further detail at your follow- up appointment, if applicable. Please Follow Up With: Malachi Sanchez DDS When: in 1 week
--- NOTE | 2020-04-10 07:59 | PCM.DC.SUM ---
Discharge Date and Diagnosis Date of Admission: 04/07/20 Date of Discharge: 04/10/20 - Primary Discharge Diagnosis Acute Problems: Active Problems Dental abscess (Acute) Sepsis (Acute) Hospital Course and Treatment Summary of Care Provided: [] This is a 49-year-old male admitted with a complaint of right-sided face swelling, pain and tenderness started with submandibular region and CT finding suggestive of abscess. 1. Right facial cellulitis with deep, complex abscesses in multiple fascial planes in the right submandibular space, right sublingual space and right road equipment operator space, odontogenic origin: Patient is admitted on [facility] floor. Leukocytosis with left shift. Patient has fever. CT shows complex abscess measuring 5 x 3.4 cm, adjacent to right posterior mandible dental caries with involvement of the base of the tongue, floor of the mouth with compression and narrowing on the oropharynx. There is cellulitis noted to the mandible. Mildly enlarged right submandibular and pericardial lymph nodes On 04/08, the patient had incision and drainage of submandibular, sublingual, road equipment operator and retropharyngeal space abscesses. Tooth 32 was also extracted. Left facial swelling has much improved about 80 to 90% along with decreased tenderness and erythema. [place] drain was removed. Wound culture is growing alphahemolytic organism. Diet advanced from clear liquid to soft diet. Patient is discharged on 7 more days of Augmentin along with chlorhexidine mouthwash. Follow-up with Dr. Sanchez in 1 week. 2. Dental caries of premolar and molar: Follow-up with dentist. Patient denies history of smoking cigarettes, chewing tobacco. Occasionally mild lingering cough. DVT prophylaxis: Lovenox CODE STATUS: Full code Discharge medication reconciliation done. Discharge follow-up instructions completed. Discharge process discussed with the surgeon, Dr. Sanhcez, patient and all questions were answered to patient's satisfaction. Need 2 weeks rest with no driving. Total time spent, exact 35 minutes on discharge meds reconciliation, examination, coordination of care with nurses and ancillary staff, discussion with Dr. Malachi Sanchez review of imaging and blood test and discussion with the patient on follow-up instructions Clinical Impression(s) from Imaging Studies Facial/Sinus 04/07/20 19:41 IMPRESSION: Multiple dental caries complex abscess measuring 5 x 3.4 cm adjacent to a right posterior mandibular dental caries which is noted lateral and medial to the mandible on the right with involvement of the base of the tongue and the floor of mouth. There is compression and narrowing of the oropharynx Cellulitis adjacent to the mandible and right Mildly enlarged right submandibular and pericarotid lymph nodes likely reactive Objective: Seen and examined. Patient can open mouth more. Tolerated clear liquid diet. Started on soft diet. Right-sided facial swelling is much improved. Physical exam General: Alert, Oriented x3, Cooperative HEENT: Atraumatic, PERRLA, EOMI, Normocephalic Oral: Trismus is decreased. dental caries of premolar and molar. Nina drain removed on 04/09. Mild tenderness present. Swelling, erythema and tenderness of right side of face has decreased. Left sided cervical and submandibular lymph node not enlarged. Neck: Supple, No JVD, Negative Carotid Bruits Lungs: Air entry diminished in bilateral lung bases. No crepitation/rhonchi Cardiovascular: Regular rate, Regular Rhythm, Normal S1, Normal S2, No murmurs Abdomen: Bowel Sounds Present, Soft, Non Tender, Non-Distended : No renal angle tenderness. No suprapubic tenderness. Extremities: No edema, Capillary Refill Less than 3 Seconds Skin: No rashes, No breakdown Musculoskeletal: No Tenderness to Palpation of Joints or Extremities Neurological: Cranial nerves II-XII grossly intact, Deep Tendon Reflexes 2+/4 and Symmetrical, Neuro grossly intact Psych/Mental Status: Normal Affect, Appropriate. - Physical Exam Vitals/I&O's: Vital Signs Temp Pulse Resp BP Pulse Ox 97.5 F L 61 18 118/72 99 04/10/20 03:57 04/10/20 03:57 04/10/20 03:57 04/10/20 03:57 04/10/20 03:57 Oxygen Delivery Method Room Air Weight: 179 lb 10.828 oz Body Mass Index (BMI) 27.3 Intake and Output for Last 24 Hours 04/08/20 04/09/20 04/10/20 23:59 23:59 23:59 Intake Total 3943.83 / 3943.83 3023.25 / 3423.25 758.25 / 758.25 Output Total 350 / 350 3450 / 3450 Balance 3593.83 / 3593.83 -426.75 / -26.75 758.25 / 758.25 Microbiology Past 72 Hours 04/08/20 16:21 Other - Mouth Gram Stain - Final 04/08/20 16:21 Other - Mouth Wound Culture - Preliminary Alpha hemolytic organism Laboratory Results 04/10/20 06:06: WBC 11.3 H, RBC 4.06 L, Hgb 12.3 L, Hct 37.6 L, MCV 92.6, MCH 30.3, MCHC 32.7, RDW Std Deviation 39.8, RDW Coeff of Alyce 11.8, Plt Count 260, MPV 9.0, Immature Gran % (Auto) 0.800, Neut % (Auto) 83.6 H, Lymph % (Auto) 9.5 L, [place] % (Auto) 6.0, Eos % (Auto) 0.0, Baso % (Auto) 0.1, Absolute Neuts (auto) 9.4 H, Absolute Lymphs (auto) 1.07, Nucleated RBC % 0 04/10/20 06:06: Sodium 138, Potassium 4.1, Chloride 105, Carbon Dioxide 30.0, Anion Gap 3 L, BUN 16, Creatinine 0.85, Estim Creat Clear Calc 99.47, Est GFR (MDRD) Af Amer 122, Est GFR (MDRD) Non-Af 100, BUN/Creatinine Ratio 18.8, Glucose 120 H, Calcium 8.5 Current Medications Dextrose (D50w Syringe) 0 gm IV X1 PRN; Protocol PRN Reason: Hypoglycemia Glucagon () 1 mg IM .X1 PRN PRN Reason: Hypoglycemia Ampicillin Sodium/Sulbactam (Sodium 3 gm/ Sodium Chloride) 112 mls @ 150 mls/hr IV Q6 CECILE Last Infusion: 04/10/20 06:09 Dose: Infused Documented by: Sodium Chloride () 250 mls @ 15 mls/hr IV .[id number] PRN PRN Reason: Saline Flush Last Infusion: 04/10/20 06:09 Dose: 15 mls/hr Documented by: Morphine Sulfate () 4 mg IV Q3H PRN PRN PRN Reason: Pain Score 6-10/10 Last Admin: 04/09/20 15:27 Dose: 4 mg Documented by: Ondansetron HCl (Zofran) 4 mg IV Q8H PRN PRN PRN Reason: NAUSEA/VOMITING Sodium Chloride () 10 - 40 ml IV UD PRN PRN Reason: SALINE FLUSH Last Admin: 04/10/20 03:46 Dose: 10 ml Documented by: Discharge Activity: May Not Drive Call your doctor if you observe: Fever of 101 or Higher, Numbness or Tingling, Inability to urinate, Inability to have a bowel movement, Shortness of breath, Dizziness, Fainting spells, Swelling in the ankles, Chest pain, Prolonged hiccoughing, Increased palpitations (irregular heartbeat), Calf discomfort, Uncontrolled pain Home Medications: Medications to take at Discharge Amox/Clavulanate Tablet [Augmentin Tablet] 875 mg PO Q12H #14 tab 04/10/20 Chlorhexidine Gluconate 480 ml MM BID #1 mouthwash 04/10/20 Following Prescriptions Were Given to Patient: Amox/Clavulanate Tablet [Augmentin Tablet] 875 mg PO Q12H #14 tab Transmission Status: Received by [facility] Chlorhexidine Gluconate 480 ml MM BID #1 mouthwash Transmission Status: Received by [facility] Primary Care Physician: Care Physician,No Primary [Primary Care Provider] - Please follow up with your Primary Care Physician in: [place] 2 Week Please Follow Up With: Malachi Sanchez DDS When: in 1 week Medical Necessity - Tobacco Use Smoking Status: Never smoker Meaningful Use Info Meaningful Use Diagnoses (Choose all that apply): None applicable Inpatient E&M: [id number] [facility]
[2020-04-10 08:32] VITALS: BP 113/76; PULSE 58; RESP 18; TEMP 36.5; O2SAT 99
--- NOTE | 2020-04-10 11:06 | NURSING ---
spoke with medical office receptionist at dr engle office. per dr tineo, ok to dc pt. take rosa to neck off.
[2020-04-10 11:21] VITALS: BP 123/61; PULSE 74; RESP 18; TEMP 36.4; O2SAT 98
--- NOTE | 2020-04-10 12:04 | PHA.DC.MR ---
Pharmacy Service has performed discharge medication reconciliation for this patient. The patient's discharge medication list was reviewed for discrepancies and discrepancies were resolved. Home Medications Amox/Clavulanate Tablet [Augmentin Tablet] 875 mg PO Q12H #14 tab 04/10/20 Chlorhexidine Gluconate 480 ml MM BID #1 mouthwash 04/10/20
== END 2020-04-10 11:48 | disposition home or self-care (01) | DRG 872 ==
LOC: ED 21:13 → MS3 21:37
PROVIDERS: Dentist Oral and Maxillofacial Surgery; Admitting Provider Student in an Organized Health Care Education/Training Program; Emergency Provider Emergency Medicine; Referring Provider Student in an Organized Health Care Education/Training Program; Visit Provider Internal Medicine
PROC: 0J9100Z Drainage of Face Subcutaneous Tissue and Fascia with Drainage Device, Open Approach (ICD-10-PCS; principal; 2020-04-08 15:20)
DX: A41.9 Sepsis, unspecified organism (principal); K12.2 Cellulitis and abscess of mouth; K04.7 Periapical abscess without sinus; J39.0 Retropharyngeal and parapharyngeal abscess; L02.11 Cutaneous abscess of neck; K02.9 Dental caries, unspecified; B95.4 Other streptococcus as the cause of diseases classified elsewhere
CPT/HCPCS: 36415; 70487; 80048; 80053; 83605; 84484; 85025; 85610; 85730; 87015; 87040; 87070; 87075; 87077; 87116; 87205; 87206; 87635; 94799; 97802; 99284; J7030; J7040; J7050; Q9967; A4216; J0295; J2405; U0003